=== PATIENT | male | born 1975 | race Caucasian/White ===

== ENCOUNTER 2023-12-24 09:24 | Emergency (ER) | payer OTHER, SELFPAY ==
[2023-12-24 09:34] VITALS: BP 164/100
--- NOTE | 2023-12-24 09:48 | ED.GENMED ---
History of Present Illness
General
Chief Complaint: Abdominal Symptoms
Source: patient
Time Seen by Provider: 12/24/23 09:40
History of Present Illness
History of Present Illness:
48yoM with a history of GERD and anxiety presenting for evaluation of indigestion. He reports ongoing indigestion and 'air bubbles' in the center of his chest for a long time. Symptoms seem to be worse over the past week. He also reports a 'feeling'
in his left arm x 1 week. Symptoms are triggering his anxiety and he decided to come to the ED to make sure everything is okay. He denies any overt chest pain. No shortness of breath, syncope, diaphoresis, nausea. No prior history of heart disease.
He exercises several times weekly and he denies every getting chest pain with activity.
Past History
Past History
ED Past Medical History: Psychiatric (Panic attacks, Anxiety); Negative Asthma, HTN, Hypercholesterolemia or NIDDM
ED Past Surgical History: None
Social History
Tobacco: Non-smoker
Alcohol: Occasional
Personal:
Living: with family
Phy Exam
General Physical Exam
General Presentation: well appearing and no apparent distress
General age: appears stated age
General Skin: warm and dry
General Habitus: normal
General Mental: alert
Cardiovascular Exam
Cardiovascular Exam: regular rate/rhythm, no edema, no murmur and normal peripheral pulses (2+ radial pulses bilaterally)
Pulmonary Exam
Pulmonary Exam: lungs clear, no respiratory distress, no crackles and no wheezing
Skin Exam
Skin Exam: normal color and warm/dry
Psychiatric Exam
Psychiatric Exam: normal mood/affect
Course
Orders/Labs/Results
Orders:
Orders
12/24/23 09:37
Electrocardiogram (*1) Urgent
Reason for Study: Abdominal Pain
EKG- Treatment ONCE
12/24/23 09:47
Cardiac Monitoring- Treatment ONCE
CR Chest - 2 Views Urgent
Comment:
Reason For Exam: CP
12/24/23 09:56
Complete Blood Count/With Diff Urgent
Comprehensive Metabolic Panel Urgent
Troponin I Urgent
Abnormal Lab Results
12/24/23
09:56
Glucose 103 H mg/dl
(70-99)
12/24/23 09:56
12/24/23 09:56
Vital Signs
Initial and Last Documented VS:
Initial Vital Signs
Temp Pulse Resp BP Pulse Ox
98.4 F 76 16 164/100 98
12/24/23 09:34 12/24/23 09:34 12/24/23 09:34 12/24/23 09:34 12/24/23 09:34
Last Documented Vital Signs
Temp Pulse Resp BP Pulse Ox
98.4 F 73 16 149/92 99
12/24/23 09:34 12/24/23 11:15 12/24/23 09:34 12/24/23 11:02 12/24/23 11:15
MDM/Problems Addressed
Differential Diagnosis Includes:
48yoM here with indigestion and a 'feeling' in his L arm x 1 week. No overt chest pain and no hx of heart disease. He is afebrile and hemodynamically stable. He is well appearing in no distress. Exam is reassuring. Differential diagnosis includes
but is not limited to: GERD, anxiety, ACS
Initial ED plan: Check cardiac labs, EKG, and CXR.
*EKG
Interpreted by ED Provider?: Yes
EKG Intrepretation Date: 12/24/23
Heart Rate: 63
Rate: normal
Rhythm: sinus
[place]: normal axis
Interval: normal interval
QRS Pattern: normal QRS
Ischemia: no ischemia
*Critical Care Note
Total Time (30-74mins, 75-104mins- exclusive of procedures): Not Applicable
Update Note
Update Note:
Labs unremarkable. EKG shows NSR without ischemic changes and troponin WNL. CXR is clear. He is stable for discharge. Patient believes he may need medications to help manage his anxiety. Will prescribe PRN Atarax. Advised close f/u with PCP and ED
return precautions discussed. He was discharged in stable condition.
ED Attending Note
-
Portions of this chart may have been created with voice recognition software.� Occasional wrong word or��sound alike� substitutions may have occurred due to the inherent limitations of voice recognition software.
Discharge Plan
Departure
Patient Disposition: Home (Routine Discharge)
Date of Disposition: 12/24/23
Time of Disposition: 11:30
Patient with high blood pressure during this ER visit?: Yes
Discharge Problem:
Indigestion, Anxiety
Instructions: Anxiety, Adult ED
Prescriptions:
New
hydroxyzine HCl 25 mg tablet
25 mg PO TID PRN (Reason: anxiety) Qty: 12 0RF
No Action
pantoprazole 40 MG tablet,delayed release (DR/EC)
40 mg PO BID Qty: 20 0RF
Referrals:
Jose E Harris MD [Family Provider] -
Activity Restrictions/Additional Instructions:
Take hydroxyzine as needed for anxiety.
Please follow-up with your family doctor. Return to the ER with any new or worsening symptoms.
Interventions
Interventions:
*Risk Screen - Suicide Last Done: 12/24/23 09:59
*General Assessment Last Done: 12/24/23 09:59
*Neglect/Abuse Screening Last Done: 12/24/23 09:59
*Nursing Disposition Last Done: 12/24/23 11:50
[facility] Assessment Last Done: 12/24/23 09:59
Discharge Date and Time
Discharge Date/Time: 12/24/23 11:51
Print Language: BELARUSIAN
[2023-12-24 09:59] VITALS: BMI 24.9
[2023-12-24 10:08] LABS: % Basophils 0.8 % (0-2); % Eosinophils 1.2 % (0-6); % Immature Granulocytes 0.3 % (0-0.5); % Lymphocytes 24.7 % (20.5-51.1); Absolute Basophils 0.1 10^3/uL (0-0.2); Absolute Eosinophils 0.1 10^3/uL (0-0.7); Absolute Lymphocytes 1.5 10^3/uL (1.2-3.4); Absolute Monocytes 0.3 10^3/uL (0.1-0.6); Absolute Neutrophils 4.1 10^3/uL (1.4-6.5); Hematocrit 41.7 % (39.0-52.0); Mean Corpuscular Hgb 29.9 pg (27.0-31.0); Mean Corpuscular Volume 83.2 fL (80.0-94.0); Mean Platelet Volume 9.4 fL (7.4-10.4); Nucleated Red Blood Cells % 0 % (-); Platelet Count 222 10^3/uL (130-400); Red Blood Cell Count 5.01 10^6/uL (4.70-6.10); Red Cell Dist. Width 12.3 % (11.5-14.5)
[2023-12-24 10:12] VITALS: BP 149/96
[2023-12-24 10:29] LABS: ALT (SGPT) 19 U/L (0-50); AST (SGOT) 28 U/L (17-59); Alkaline Phosphatase 109 U/L (38-126); Blood Urea Nitrogen 18 mg/dl (9-20); Calcium 10.1 mg/dl (8.4-10.2); Carbon Dioxide 24 mmol/L (22-30); Chloride 104 mmol/L (98-107); Estimated Creatinine Clearance 123 ml/min; Glucose 103 mg/dl (70-99); Potassium 4.6 mmol/L (3.5-5.1); Sodium 143 mmol/L (135-145); Total Bilirubin 0.5 mg/dl (0.2-1.3); Total Protein 7.3 g/dl (6.3-8.2); eGFR > 60.00
[2023-12-24 10:41] LABS: Troponin I < 0.012 ng/ml
[2023-12-24 11:02] VITALS: BP 149/92
== END 2023-12-24 11:51 | disposition home or self-care (01) ==
LOC: EMR 09:24
PROVIDERS: Physician Assistant; EMERGENCY PHYSICIAN Emergency Medicine; FAMILY PHYSICIAN Family Medicine
DX: K30 Functional dyspepsia (principal); F41.9 Anxiety disorder, unspecified; F41.0 Panic disorder [episodic paroxysmal anxiety]; Z88.0 Allergy status to penicillin; Z91.048 Other nonmedicinal substance allergy status
CPT/HCPCS: 99283; 71046; 80053; 84484; 85025; 93005